=== PATIENT | male | born 1945 | race Caucasian/White ===

== ENCOUNTER 2019-09-11 18:50 | Observation (INO) | payer OTHER, MEDICARE ==
[2019-09-11] MEDS ORDERED: Lactated Ringers 1,000 ML IV STA (19:09)
[2019-09-11] MEDS ORDERED: Propofol 200 MG/20 ML SDV ONE (19:29)
[2019-09-11] MEDS ORDERED: fentaNYL 250 MCG/5 ML SDV ONE ×2 (19:29→20:48)
[2019-09-11] MEDS ORDERED: Midazolam 1 MG/ML 2 ML SDV ONE (19:29)
[2019-09-11] MEDS ORDERED: Ondansetron 4 MG/2 ML SDV ONE (19:32)
[2019-09-11] MEDS ORDERED: Rocuronium Bromide 50 MG/5 ML Syringe ONE (19:32)
[2019-09-11] MEDS ORDERED: Lidocaine 2% 5 ML SDV ONE (19:32)
[2019-09-11] MEDS ORDERED: Ketorolac 30 MG/ML SDV ONE (19:32)
[2019-09-11] MEDS ORDERED: Glycopyrrolate 0.2 MG/ML SDV ONE (19:32)
[2019-09-11] MEDS ORDERED: Bupivacaine 0.25%/EPINEPHrine 1:200,000 10 ML SDV ONE (19:42)
[2019-09-11] MEDS ORDERED: Lactated Ringers 1,000 ML IV SCH ×2 (19:45→21:30)
--- NOTE | 2019-09-11 19:47 | PCM.SN.2 ---
- Free Text/Narrative Note: pt seen, chart reviewed; acute appendicitis; to surgery for appendectomy, lap vs open; rb dw pt re bleeding/infection/damage to nearby organs/abscess/postop course; pt concurred and proceed; ivf/ivabx/consent; [id number]
[2019-09-11] MEDS ORDERED: fentaNYL 100 MCG/2 ML SDV IVPUSH PRN (19:52)
--- NOTE | 2019-09-11 19:52 | PCM.PREANE ---
Preanesthetic Assessment - Anesthesia/Transfusion/Family Hx Anesthesia History: Prior Anesthesia Without Reaction Family History of Anesthesia Reaction: No - Review of Systems Gastrointestinal: Abdominal Pain - Physical Assessment NPO Status Date: 09/11/19 NPO Status Time: 08:00 Vital Signs: Last Vital Signs Temp 35.8 C L 09/11/19 19:18 Pulse 67 09/11/19 19:18 Resp 18 09/11/19 19:18 BP 139/63 09/11/19 19:18 Pulse Ox 93 L 09/11/19 19:18 Height: 1.8 m Weight: 99.79 kg ASA Class: 2E - Allergies Allergies/Adverse Reactions: Allergies Allergy/AdvReac Type Severity Reaction Status Date / Time No Known Allergies Allergy Verified 09/11/19 18:52 - Acknowledgements Anesthesia Type Planned: General Anesthesia Pt an Appropriate Candidate for the Planned Anesthesia: Yes Alternatives and Risks of Anesthesia Discussed w Pt/Guardian: Yes Pt/Guardian Understands and Agrees with Anesthesia Plan: Yes PreAnesthesia Questionnaire Cardiovascular History: Reports: Hypertension Psychiatric History: Reports: Depression - Infectious Disease History Infectious Disease History: Reports: Chicken Pox - Past Surgical History Cardiovascular Surgical History: Reports: Other (See Below) GI Surgical History: Reports: Cholecystectomy - SUBSTANCE USE Smoking Status *Q: Former Smoker Tobacco Use Within Last Twelve Months: Cigarettes Recreational Drug Use History: No - HOME MEDS Home Medications: Home Meds Allopurinol [Zyloprim] 100 mg PO DAILY 09/11/19 [History] Aspirin [Aspirin EC] 81 mg PO DAILY 09/11/19 [History] Citalopram Hydrobromide [Celexa] 40 mg PO DAILY 09/11/19 [History] Doxazosin [Cardura] 4 mg PO DAILY 09/11/19 [History] Ezetimibe [Zetia] 10 mg PO BEDTIME 09/11/19 [History] Metoprolol Tartrate 50 mg PO BID 09/11/19 [History] [place]-3/DHA/Epa/Fish Oil [[place] 3 500 Softgel] 1 tab PO DAILY 09/11/19 [History] Pantoprazole Sodium [Protonix] 40 mg PO DAILY 09/11/19 [History] Ramipril 10 mg PO DAILY 09/11/19 [History] Simvastatin 40 mg PO BEDTIME 09/11/19 [History] Ubidecarenone [Coq10] 1 tab PO DAILY 09/11/19 [History] hydroCHLOROthiazide [Hydrochlorothiazide] 12.5 mg PO DAILY 09/11/19 [History] - CURRENT (IN HOUSE) MEDS Current Meds: Current Medications Lactated Ringer's (Ringers, Lactated) 1,000 mls @ 125 mls/hr IV STAT STA Stop: 09/12/19 03:08 Last Admin: 09/11/19 19:19 Dose: 125 mls/hr Documented by: Lactated Ringer's (Ringers, Lactated) 1,000 mls @ 125 mls/hr IV ASDIRECTED BRADLEY Discontinued Medications Bupivacaine HCl/Epinephrine Bitart (Marcaine 0.25%/Epinephrine 1:200,000) Con firm Administered Dose 20 ml .ROUTE .STK-MED ONE Stop: 09/11/19 19:43 Fentanyl (Sublimaze) Confirm Administered Dose 250 mcg .ROUTE .STK-MED ONE Stop: 09/11/19 19:30 Glycopyrrolate (Robinul) Confirm Administered Dose 0.2 mg .ROUTE .STK-MED ONE Stop: 09/11/19 19:33 Ketorolac Tromethamine (Toradol) Confirm Administered Dose 30 mg .ROUTE .STK-MED ONE Stop: 09/11/19 19:33 Lidocaine (Xylocaine-Mpf 2%) Confirm Administered Dose 5 ml .ROUTE .STK-MED ONE Stop: 09/11/19 19:33 Midazolam HCl (Versed 1 Mg/Ml) Confirm Administered Dose 2 mg .ROUTE .STK-MED ONE Stop: 09/11/19 19:30 Ondansetron HCl (Zofran) Confirm Administered Dose 4 mg .ROUTE .STK-MED ONE Stop: 09/11/19 19:33 Propofol (Diprivan 20 Ml) Confirm Administered Dose 200 mg .ROUTE .STK-MED ONE Stop: 09/11/19 19:30 Rocuronium Holliday (Rocuronium Holliday) Confirm Administered Dose 50 mg .ROUTE .STK-MED ONE Stop: 09/11/19 19:33
[2019-09-11] MEDS ORDERED: Sugammadex Sodium 200 MG/2 ML VIAL ONE (19:59)
[2019-09-11] MEDS ORDERED: Desflurane 240 ML Bottle ONE (19:59)
--- NOTE | 2019-09-11 21:29 | PCM.OPNOTE ---
- General Post-Op/Procedure Note Date of Surgery/Procedure: 09/11/19 Operative Procedure(s): lap appy Findings: appendix was dilated and hardened, perforated during manipulation; [id number] Pre Op Diagnosis: acute appendicitis Post-Op Diagnosis: perforated appendicitis Anesthesia Technique: General ET Tube Primary Surgeon: Tim Hamilton Pathology: sent Complications: None Condition: Stable Free Text/Narrative:: Intake & Output 09/11/19 09/11/19 09/11/19 06:59 14:59 22:59 Output Total 100 Balance -100
[2019-09-11] MEDS ORDERED: Ondansetron 4 MG/2 ML SDV IVPUSH PRN (21:30)
[2019-09-11] MEDS ORDERED: Morphine 4 MG/ML Syringe IVPUSH PRN (21:31)
[2019-09-11] MEDS: Acetaminophen 1,000 MG in Premix Bag 1 BAG IV PRN (21:44)
--- NOTE | 2019-09-11 21:54 | PCM.POSTAN ---
POST ANESTHESIA ASSESSMENT - MENTAL STATUS Mental Status: Alert - VITAL SIGNS Vital Signs: Last Vital Signs Temp 35.8 C L 09/11/19 19:18 Pulse 73 09/11/19 20:11 Resp 18 09/11/19 20:11 BP 131/65 09/11/19 20:11 Pulse Ox 92 L 09/11/19 20:11 - RESPIRATORY Respiratory Status: Respiratory Rate WNL - CARDIOVASCULAR CV Status: Pulse Rate WNL - GASTROINTESTINAL GI Status: No Symptoms - POST OP HYDRATION Hydration Status: Adequate & Stable
[2019-09-12] MEDS: Acetaminophen/oxyCODONE 325-5 MG Tab PO PRN ×2 (01:15→09:07)
[2019-09-12] MEDS ORDERED: Morphine 4 MG/ML Syringe IVPUSH ONE (05:13)
[2019-09-12] MEDS ORDERED: Lactated Ringers 1,000 ML IV ONE (06:26)
--- NOTE | 2019-09-12 08:57 | OR ---
SURGEON: Tim Hamiltno MD DATE OF PROCEDURE: 09/11/2019 PREOPERATIVE DIAGNOSIS: Acute appendicitis. POSTOPERATIVE DIAGNOSIS: Perforated appendicitis. PROCEDURE PERFORMED: Laparoscopic appendectomy with ZARI drain placement. PRIMARY SURGEON: Tim Hamilton MD. COMPLICATIONS: None. FINDINGS: The appendix was dilated like a balloon and full of exudate consistent with appendicitis suppurativa, and during manipulation, it ruptured. DESCRIPTION OF PROCEDURE: The patient was taken to the operating room and placed in the supine position. Following induction of general endotracheal anesthesia, the patient's abdomen was prepped and draped in the sterile fashion. A time-out has been called. The patient was identified. The procedure was identified. The antibiotics were identified. The procedure then proceeded. The abdomen was prepped and draped in a standard fashion. After assessment of appropriate landmarks, a 12 millimeter trocar was inserted supraumbilically using Optiview and pneumoperitoneum was then achieved. This was followed with placement of 5 millimeter port in the right upper quadrant and another 5 millimeter port infraumbilically. The camera was inserted supraumbilical site and two laparoscopic Mikayla retractors were then inserted through the other two sites. Following the cecum, the appendix was located. The appendix was then lifted up, and using a GI stapler the appendix was amputated at the base. And using the GI stapler, the mesoappendix was then amputated. The appendix was retrieved by an endoscopic bag and sent for pathologist. After the appendix was removed, over 3 L of warm irrigation copiously irrigated the abdomen before withdrawing the trocar, and a flat ZARI drain was also placed afterward and anchored to the skin by 0 silk. This was then followed by re-insertion of the camera to examine the staple line, and hemostasis. The trocars were then removed. The umbilical site was closed with 2-0 Vicryl deep stitch and skin rony for skin approximation, so does the other sites; The patient was then awakened, extubated, and transferred to the recovery room in hemodynamically stable condition. Prior to closing, sponge count and instrument count was correct. Dr. Hamilton was present throughout the whole procedure. As always, thank you for the kind referral. RENUKA / EVERT /[id number] NICOLE
--- NOTE | 2019-09-12 09:35 | PCM48HPAN ---
Post Anesthesia Note - EVALUATION WITHIN 48HRS OF ANESTHETIC Vital Signs in Normal Range: Yes Patient Participated in Evaluation: Yes Respiratory Function Stable: Yes Airway Patent: Yes Cardiovascular Function Stable: Yes Hydration Status Stable: Yes Pain Control Satisfactory: Yes Nausea and Vomiting Control Satisfactory: Yes Mental Status Recovered: Yes Vital Signs: Last Vital Signs Temp 36.0 C L 09/12/19 04:30 Pulse 79 09/12/19 04:30 Resp 15 09/12/19 04:30 BP 124/66 09/12/19 04:30 Pulse Ox 95 09/12/19 04:30
[2019-09-12] MEDS: Acetaminophen 1,000 MG in Premix Bag 1 BAG IV PRN ×2 (10:27→13:04)
[2019-09-12] MEDS: Ketorolac 15 MG/ML SDV IVPUSH PRN ×2 (10:31→21:10)
--- NOTE | 2019-09-12 10:49 | HP ---
DATE OF : 1945 PRIMARY CARE PHYSICIAN: JUAN J SILVA, GOLF COURSE ASSISTANT He is a transfer from [facility]. TRANSFER CONSULT QUESTION: Acute appendicitis. HISTORY OF PRESENT ILLNESS: The patient is a 74 years ago, obese, gentleman, complained of a 24- hour history of acute onset of right upper quadrant pain and acute onset of periumbilical pain, subsequently migrated to the right lower quadrant. CAT scan shows inflammatory change around the appendix. Radiologist reported acute appendicitis. The patient was then transferred to our facility for further management. The patient remarked that the pain has been going on for 24 hours, and on the pain scale of 8/10. Denied prior episode. Denied nausea, vomiting. Last meal was at 1200 hours. PAST MEDICAL HISTORY: Significant for no diabetes, hypertension, or CVA. The patient has had CT 5 years ago, status post CABG. FAMILY HISTORY: Denied family history of malignant hyperthermia. SOCIAL HISTORY: Denied tobacco or alcohol abuse. ALLERGIES TO MEDICATION: Please refer to nursing for details. PHYSICAL EXAMINATION: GENERAL: A very pleasant gentleman in no acute distress. HEENT: Normocephalic and atraumatic. Sclerae are anicteric. LUNGS: Clear to auscultation. HEART: Regular rate and rhythm. ABDOMEN: Obese. Exquisite tenderness on the McBurney's point. No Rovsing's sign. No rebound tenderness. Obvious surgical scar on the sternum and obvious laparoscopic surgery scar. No hernia appreciated, and no pulsating tender midline abdominal structure. LABORATORY DATA: White count of 12. BUN is 28, creatinine is 1.2. Total bilirubin is 0.4. AST and ALT are 19 and 21, alkaline phosphatase is 76. Lipase is 34. UA, no signs or symptoms of urinary tract infection. CAT scan, acute appendicitis, no evidence to suggest perforation. IMPRESSION: History and physical and imaging study consistent with acute appendicitis. The patient will be taken to the operating room for timely surgery intervention. We will offer laparoscopic versus open appendectomy. Risks and benefits discussed with the patient including bleeding, infection, and damage to nearby organ, as well as possible abdominal abscess, and postop course, and the patient concurred to proceed with surgery. We will start with IV fluid, IV antibiotic, signed consent. As always, thank you for the kind referral. RENUKA / EVERT /[id number]
--- NOTE | 2019-09-12 11:14 | PCM.SURGPN ---
- General Info Date of Service: 09/12/19 Pain Score: 6 - Patient Data Vitals - Most Recent: Last Vital Signs Temp 97.9 F 09/12/19 08:00 Pulse 80 09/12/19 08:00 Resp 16 09/12/19 08:00 BP 101/52 L 09/12/19 08:00 Pulse Ox 94 L 09/12/19 10:00 Weight - Most Recent: 220 lb I&O - Last 24 Hours: Intake & Output 09/11/19 09/12/19 09/12/19 22:59 06:59 14:59 Intake Total 1750 500 Output Total 310 300 Balance 1440 200 Lab Results Last 24 Hrs: Laboratory Results - last 24 hr 09/11/19 09/12/19 Range/Units 19:29 10:46 WBC 12.16 H (4.0-11.0) K/uL RBC 4.06 L (4.50-5.90) M/uL Hgb 11.8 L (13.0-17.0) g/dL Hct 37.3 L (38.0-50.0) % MCV 91.9 (80.0-98.0) fL MCH 29.1 (27.0-32.0) pg MCHC 31.6 (31.0-37.0) g/dL RDW Std Deviation 52.6 (28.0-62.0) fl RDW Coeff of Manpreet 16 H (11.0-15.0) % Plt Count 169 (150-400) K/uL MPV 10.40 (7.40-12.00) fL Neut % (Auto) 76.8 (48.0-80.0) % Lymph % (Auto) 15.5 L (16.0-40.0) % [place] % (Auto) 7.5 (0.0-15.0) % Eos % (Auto) 0.1 (0.0-7.0) % Baso % (Auto) 0.1 (0.0-1.5) % Neut # (Auto) 9.3 H (1.4-5.7) K/uL Lymph # (Auto) 1.9 (0.6-2.4) K/uL [place] # (Auto) 0.9 H (0.0-0.8) K/uL Eos # (Auto) 0.0 (0.0-0.7) K/uL Baso # (Auto) 0.0 (0.0-0.1) K/uL Nucleated RBC % 0.0 /100WBC Nucleated RBCs # 0 K/uL SARS-CoV-2 RNA (RT-PCR) NEGATIVE (NEGATIVE) Med Orders - Current: Current Medications Acetaminophen 1,000 mg/ Premix 100 mls @ 400 mls/hr IV Q6H PRN PRN Reason: Pain Last Infusion: 09/11/19 21:59 Dose: Infused Documented by: Cefoxitin Sodium (Mefoxin In Dextrose,Iso-Osm 1 Gm/50 Ml) 50 mls @ 100 mls/hr IV Q8H BRADLEY Last Admin: 09/12/19 05:34 Dose: 100 mls/hr Documented by: Lactated Ringer's (Ringers, Lactated) 1,000 mls @ 100 mls/hr IV ASDIRECTED [facility] Ketorolac Tromethamine (Toradol) 15 mg IVPUSH Q6H PRN PRN Reason: PAIN Last Admin: 09/12/19 10:31 Dose: 15 mg Documented by: Morphine Sulfate (Morphine) 4 mg IVPUSH Q6H PRN PRN Reason: Breakthrough Pain Ondansetron HCl (Zofran) 4 mg IVPUSH Q8H PRN PRN Reason: Nausea/Vomiting Oxycodone/Acetaminophen (Percocet 325-10 Mg) 1 tab PO Q6H PRN PRN Reason: Pain/Fever Discontinued Medications Bupivacaine HCl/Epinephrine Bitart (Marcaine 0.25%/Epinephrine 1:200,000) Confirm Administered Dose 20 ml .ROUTE .STK-MED ONE Stop: 09/11/19 19:43 Desflurane (Suprane) Confirm Administered Dose 240 ml .ROUTE .STK-MED ONE Stop: 09/11/19 20:00 Fentanyl (Sublimaze) Confirm Administered Dose 250 mcg .ROUTE .STK-MED ONE Stop: 09/11/19 19:30 Fentanyl (Sublimaze) 50 mcg IVPUSH Q5M PRN PRN Reason: Pain Fentanyl (Sublimaze) Confirm Administered Dose 250 mcg .ROUTE .STK-MED ONE Stop: 09/11/19 20:49 Glycopyrrolate (Robinul) Confirm Administered Dose 0.2 mg .ROUTE .STK-MED ONE Stop: 09/11/19 19:33 Lactated Ringer's (Ringers, Lactated) 1,000 mls @ 125 mls/hr IV STAT STA Stop: 09/12/19 03:08 Last Admin: 09/11/19 19:19 Dose: 125 mls/hr Documented by: Lactated Ringer's (Ringers, Lactated) 1,000 mls @ 125 mls/hr IV ASDIRECTED BRADLEY Last Admin: 09/11/19 23:07 Dose: 125 mls/hr Documented by: Lactated Ringer's (Ringers, Lactated) 1,000 mls @ 125 mls/hr IV ASDIRECTED BRADLEY Cefoxitin Sodium 1 gm/ Sodium (Chloride) 50 mls @ 100 mls/hr IV Q8HR BRADLEY Acetaminophen (Ofirmev) Confirm Administered Dose 100 mls @ as directed .ROUTE .STK-MED ONE Stop: 09/11/19 21:43 Lactated Ringer's (Ringers, Lactated) 1,000 mls @ 999 mls/hr IV ONETIME ONE Stop: 09/12/19 07:26 Last Admin: 09/12/19 06:37 Dose: 999 mls/hr Documented by: Ketorolac Tromethamine (Toradol) Confirm Administered Dose 30 mg .ROUTE .STK-MED ONE Stop: 09/11/19 19:33 Lidocaine (Xylocaine-Mpf 2%) Confirm Administered Dose 5 ml .ROUTE .STK-MED ONE Stop: 09/11/19 19:33 Midazolam HCl (Versed 1 Mg/Ml) Confirm Administered Dose 2 mg .ROUTE .STK-MED ONE Stop: 09/11/19 19:30 Morphine Sulfate (Morphine) 3 mg IVPUSH ONETIME ONE Stop: 09/12/19 05:14 Last Admin: 09/12/19 05:27 Dose: 3 mg Documented by: Ondansetron HCl (Zofran) Confirm Administered Dose 4 mg .ROUTE .STK-MED ONE Stop: 09/11/19 19:33 Oxycodone/Acetaminophen (Percocet 325-5 Mg) 1 tab PO Q6H PRN PRN Reason: Pain Last Admin: 09/12/19 09:07 Dose: 1 tab Documented by: Propofol (Diprivan 20 Ml) Confirm Administered Dose 200 mg .ROUTE .STK-MED ONE Stop: 09/11/19 19:30 Rocuronium [place] (Rocuronium [place]) Confirm Administered Dose 50 mg .ROUTE .STK-MED ONE Stop: 09/11/19 19:33 Sugammadex Sodium ([place]ridion) Confirm Administered Dose 200 mg .ROUTE .STK-MED ONE Stop: 09/11/19 20:00 - Exam GI/Abdominal Exam: No Distention (wound cdi; brando cloudy; hurt in abd; denied chest pain) Sepsis Event Note - Evaluation Sepsis Screening Result: No Definite Risk - Focused Exam Vital Signs: Vital Signs Temp Pulse Resp BP Pulse Ox 09/12/19 10:00 94 L 09/12/19 09:00 92 L 09/12/19 08:15 88 L 09/12/19 08:00 97.9 F 80 16 101/52 L 77 L 09/12/19 04:30 96.8 F L 79 15 124/66 95 09/12/19 02:30 97.9 F 84 18 118/60 95 09/12/19 01:30 97.7 F 82 17 115/62 96 09/12/19 00:30 97.7 F 82 18 135/86 96 09/12/19 00:00 98.2 F 75 18 125/65 95 09/11/19 23:30 98.2 F 86 18 118/68 95 09/11/19 23:15 98.2 F 85 16 132/85 99 Date Exam was Performed: 09/12/19 Time Exam was Performed: 11:12 - Problem List Review Problem List Initiated/Reviewed/Updated: Yes - My Orders Last 24 Hours: Active Orders 24 hr Category Date Time Status Admission Status [Patient Status] [ADT] Routine ADT 09/11/19 21:29 Active Communication Order [RC] ROUTINE Care 09/11/19 21:33 Active Full Liquid Diet [DIET] Diet 09/12/19 Breakfast Active COMPREHENSIVE METABOLIC PN,CMP [CHEM] Routine Lab 09/12/19 10:13 Ordered Acetaminophen [Ofirmev] 1,000 mg Med 09/11/19 19:52 Active Premix Bag 1 bag IV Q6H Acetaminophen/oxyCODONE [Percocet 325-10 MG] Med 09/12/19 10:21 Active 1 tab PO Q6H PRN Ketorolac [Toradol] Med 09/12/19 10:25 Active 15 mg IVPUSH Q6H PRN Lactated Ringers [Ringers, Lactated] 1,000 ml Med 09/12/19 10:30 Active IV ASDIRECTED Morphine Med 09/11/19 21:31 Active 4 mg IVPUSH Q6H PRN Ondansetron [Zofran] Med 09/11/19 21:30 Active 4 mg IVPUSH Q8H PRN cefOXitin [Mefoxin in Dextrose,Iso-Osm 1 GM/50 ML] 50 Med 09/11/19 22:00 Active ml IV Q8H Medication Orders Acetaminophen 1,000 mg/ Premix 100 mls @ 400 mls/hr IV Q6H PRN PRN Reason: Pain Last Infusion: 09/11/19 21:59 Dose: 400 mls/hr Documented by: Admin: 09/11/19 21:44 Dose: 400 mls/hr Documented by: AYAH Cefoxitin Sodium (Mefoxin In Dextrose,Iso-Osm 1 Gm/50 Ml) 50 mls @ 100 mls/hr IV Q8H BRADLEY Last Admin: 09/12/19 05:34 Dose: 100 mls/hr Documented by: Infusion: 09/11/19 23:38 Dose: 100 mls/hr Documented by: Admin: 09/11/19 23:08 Dose: 100 mls/hr Documented by: RACHELLE Lactated Ringer's (Ringers, Lactated) 1,000 mls @ 100 mls/hr IV ASDIRECTED BRADLEY Ketorolac Tromethamine (Toradol) 15 mg IVPUSH Q6H PRN PRN Reason: PAIN Last Admin: 09/12/19 10:31 Dose: 15 mg Documented by: YONIS Morphine Sulfate (Morphine) 4 mg IVPUSH Q6H PRN PRN Reason: Breakthrough Pain Ondansetron HCl (Zofran) 4 mg IVPUSH Q8H PRN PRN Reason: Nausea/Vomiting Oxycodone/Acetaminophen (Percocet 325-10 Mg) 1 tab PO Q6H PRN PRN Reason: Pain/Fever - Assessment Assessment (Free Text/Narrative):: pod#1 lap appy, perforated; increase abd pain, denied chest pain; sent blood work; change to observation adm status; continue ivf/iv abx - Plan Plan (Free Text/Narrative):: pod#1 lap appy, perforated; increase abd pain, denied chest pain; sent blood work; change to observation adm status; continue ivf/iv abx
[2019-09-12 11:21] LABS: CARBON DIOXIDE,CO2 21.8 mmol/L (21.0-32.0); POTASSIUM,K 4.4 mmol/L (3.5-5.1)
[2019-09-12] MEDS: Acetaminophen/oxyCODONE 325-10 MG Tab PO PRN ×2 (16:50→22:46)
[2019-09-12] MEDS: Pantoprazole 40 MG Tab.CR PO SCH (16:51)
[2019-09-12] MEDS: Lactated Ringers 1,000 ML IV SCH (22:42)
[2019-09-13] MEDS: Ketorolac 15 MG/ML SDV IVPUSH PRN ×2 (03:03→11:43)
[2019-09-13] MEDS: Acetaminophen/oxyCODONE 325-10 MG Tab PO PRN ×3 (04:43→22:48)
[2019-09-13] MEDS ORDERED: Lactated Ringers 500 ML IV ONE (05:10)
[2019-09-13] MEDS: Pantoprazole 40 MG Tab.CR PO SCH (08:51)
[2019-09-13] MEDS: Lactated Ringers 1,000 ML IV SCH ×2 (10:16→19:24)
[2019-09-13 12:37] LABS: CARBON DIOXIDE,CO2 24.7 mmol/L (21.0-32.0); POTASSIUM,K 4.3 mmol/L (3.5-5.1)
[2019-09-14] MEDS: Lactated Ringers 1,000 ML IV SCH (04:02)
--- NOTE | 2019-09-14 07:56 | PCM.DCSUM1 ---
Discharge Summary - Hospital Course Free Text/Narrative:: refer to admitting h/p for details; in summary, pls transfer from [facility] for appendicitis; Diagnosis: Stroke: No - Discharge Data Discharge Date: 09/14/19 Discharge Disposition: Home, Self-Care 01 Condition: Stable - Referral to Home Health Date of Face to Face Encounter: 09/14/19 Primary Care Physician: Grisel Santacruz [employer] - Patient Summary/Data Operative Procedure(s) Performed: lap appy Hospital Course: pt taken to surgery s/p lap appy w drain placement; appendix was v dilated, and ruptured during surgery; postop pt was put on iv abx; and diet started the next day; pt is not v mobile right after surg; but started OOB to chair yesterday; and amb w asst; doing well; home; upon discharge, deya po diet, pt has script for pain meds; learned [facility]ando maintanence and fu appt coming thursday to [facility] - Patient Instructions Diet: Regular Diet as Tolerated Activity: No Lifting Over 10 Pounds, No Strenuous Activities Driving: Do Not Drive Showering/Bathing: May Shower Wound/Incision Care: Keep Operative Site/Wound Site Clean and Dry Notify Provider of: Fever, Drainage, Nausea and/or Vomiting - Discharge Plan Home Medications: Home Meds Allopurinol [Zyloprim] 100 mg PO DAILY 09/11/19 [History] Aspirin [Aspirin EC] 81 mg PO DAILY 09/11/19 [History] Citalopram Hydrobromide [Celexa] 40 mg PO DAILY 09/11/19 [History] Doxazosin [Cardura] 4 mg PO DAILY 09/11/19 [History] Ezetimibe [Zetia] 10 mg PO BEDTIME 09/11/19 [History] Metoprolol Tartrate 50 mg PO BID 09/11/19 [History] Meridian-3/DHA/Epa/Fish Oil [Meridian 3 500 Softgel] 1 tab PO DAILY 09/11/19 [History] Pantoprazole Sodium [Protonix] 40 mg PO DAILY 09/11/19 [History] Ramipril 10 mg PO DAILY 09/11/19 [History] Simvastatin 40 mg PO BEDTIME 09/11/19 [History] Ubidecarenone [Coq10] 1 tab PO DAILY 09/11/19 [History] hydroCHLOROthiazide [Hydrochlorothiazide] 12.5 mg PO DAILY 09/11/19 [History] Patient Handouts: Laparoscopic Appendectomy, Adult, Care After, [id number], Surgical Drain Home Care Referrals: Tim Hamilton MD [Emergency Provider] - 09/20/19 9:15 am (Arrive 15 minutes early with a photo ID, insurance card, and a mask if you have one. ) - Discharge Summary/Plan Comment DC Time >30 min.: Yes - Patient Data Vitals - Most Recent: Last Vital Signs Temp 99.6 F 09/14/19 07:35 Pulse 85 09/14/19 07:35 Resp 14 09/14/19 07:35 BP 170/78 H 09/14/19 07:35 Pulse Ox 92 L 09/14/19 07:35 Weight - Most Recent: 231 lb 8 oz I&O - Last 24 hours: Intake & Output 09/13/19 09/14/19 09/14/19 22:59 06:59 14:59 Intake Total 570 3151 Output Total 645 880 Balance -75 2271 Lab Results - Last 24 hrs: Laboratory Results - last 24 hr 09/13/19 09/13/19 Range/Units 12:05 12:05 WBC 12.94 H (4.0-11.0) K/uL RBC 3.87 L (4.50-5.90) M/uL Hgb 11.4 L (13.0-17.0) g/dL Hct 35.7 L (38.0-50.0) % MCV 92.2 (80.0-98.0) fL MCH 29.5 (27.0-32.0) pg MCHC 31.9 (31.0-37.0) g/dL RDW Std Deviation 53.5 (28.0-62.0) fl RDW Coeff of Manpreet 16 H (11.0-15.0) % Plt Count 152 (150-400) K/uL MPV 9.80 (7.40-12.00) fL Neut % (Auto) 83.8 H (48.0-80.0) % Lymph % (Auto) 9.2 L (16.0-40.0) % Reynolds % (Auto) 6.5 (0.0-15.0) % Eos % (Auto) 0.4 (0.0-7.0) % Baso % (Auto) 0.1 (0.0-1.5) % Neut # (Auto) 10.9 H (1.4-5.7) K/uL Lymph # (Auto) 1.2 (0.6-2.4) K/uL Reynolds # (Auto) 0.8 (0.0-0.8) K/uL Eos # (Auto) 0.1 (0.0-0.7) K/uL Baso # (Auto) 0.0 (0.0-0.1) K/uL Nucleated RBC % 0.0 /100WBC Nucleated RBCs # 0 K/uL Sodium 137 (136-148) mmol/L Potassium 4.3 (3.5-5.1) mmol/L Chloride 103 (98-107) mmol/L Carbon Dioxide 24.7 (21.0-32.0) mmol/L BUN 25 H (7.0-18.0) mg/dL Creatinine 1.5 H (0.8-1.3) mg/dL Est Cr Clr Drug Dosing 47.22 mL/min Estimated GFR (MDRD) 46.0 ml/min Glucose 116 H (74-106) mg/dL Calcium 7.9 L (8.5-10.1) mg/dL Total Bilirubin 0.6 (0.2-1.0) mg/dL AST 28 (15-37) IU/L ALT 25 (14-63) IU/L Alkaline Phosphatase 63 (46-116) U/L Total Protein 6.5 (6.4-8.2) g/dL Albumin 2.9 L (3.4-5.0) g/dL Globulin 3.6 (2.6-4.0) g/dL Albumin/Globulin Ratio 0.8 L (0.9-1.6) Med Orders - Current: Current Medications Acetaminophen 1,000 mg/ Premix 100 mls @ 400 mls/hr IV Q6H PRN PRN Reason: Pain Last Admin: 09/12/19 13:04 Dose: 400 mls/hr Documented by: Cefoxitin Sodium (Mefoxin In Dextrose,Iso-Osm 1 Gm/50 Ml) 50 mls @ 100 mls/hr IV Q8H [facility] Last Admin: 09/14/19 05:43 Dose: 100 mls/hr Documented by: Lactated Ringer's (Ringers, Lactated) 1,000 mls @ 100 mls/hr IV ASDIRECTED [facility] Last Admin: 09/14/19 04:02 Dose: 100 mls/hr Documented by: Ketorolac Tromethamine (Toradol) 15 mg IVPUSH Q6H PRN PRN Reason: PAIN Last Admin: 09/13/19 11:43 Dose: 15 mg Documented by: Morphine Sulfate (Morphine) 4 mg IVPUSH Q6H PRN PRN Reason: Breakthrough Pain Ondansetron HCl (Zofran) 4 mg IVPUSH Q8H PRN PRN Reason: Nausea/Vomiting Oxycodone/Acetaminophen (Percocet 325-10 Mg) 1 tab PO Q6H PRN PRN Reason: Pain/Fever Last Admin: 09/13/19 22:48 Dose: 1 tab Documented by: Pantoprazole Sodium (Protonix) 20 mg PO DAILY [facility] Last Admin: 09/13/19 08:51 Dose: 20 mg Documented by: Discontinued Medications Bupivacaine HCl/Epinephrine Bitart (Marcaine 0.25%/Epinephrine 1:200,000) Confirm Administered Dose 20 ml .ROUTE .STK-MED ONE Stop: 09/11/19 19:43 Desflurane (Suprane) Confirm Administered Dose 240 ml .ROUTE .STK-MED ONE Stop: 09/11/19 20:00 Fentanyl (Sublimaze) Confirm Administered Dose 250 mcg .ROUTE .STK-MED ONE Stop: 09/11/19 19:30 Fentanyl (Sublimaze) 50 mcg IVPUSH Q5M PRN PRN Reason: Pain Fentanyl (Sublimaze) Confirm Administered Dose 250 mcg .ROUTE .STK-MED ONE Stop: 09/11/19 20:49 Glycopyrrolate (Robinul) Confirm Administered Dose 0.2 mg .ROUTE .STK-MED ONE Stop: 09/11/19 19:33 Lactated Ringer's (Ringers, Lactated) 1,000 mls @ 125 mls/hr IV STAT STA Stop: 09/12/19 03:08 Last Admin: 09/11/19 19:19 Dose: 125 mls/hr Documented by: Lactated Ringer's (Ringers, Lactated) 1,000 mls @ 125 mls/hr IV ASDIRECTED [facility] Last Admin: 09/11/19 23:07 Dose: 125 mls/hr Documented by: Lactated Ringer's (Ringers, Lactated) 1,000 mls @ 125 mls/hr IV ASDIRECTED [facility] Cefoxitin Sodium 1 gm/ Sodium (Chloride) 50 mls @ 100 mls/hr IV Q8HR [facility] Acetaminophen (Ofirmev) Confirm Administered Dose 100 mls @ as directed .ROUTE .STK-MED ONE Stop: 09/11/19 21:43 Lactated Ringer's (Ringers, Lactated) 1,000 mls @ 999 mls/hr IV ONETIME ONE Stop: 09/12/19 07:26 Last Admin: 09/12/19 06:37 Dose: 999 mls/hr Documented by: Lactated Ringer's (Ringers, Lactated) 500 mls @ 999 mls/hr IV ONETIME ONE Stop: 09/13/19 05:40 Last Admin: 09/13/19 05:11 Dose: 999 mls/hr Documented by: Ketorolac Tromethamine (Toradol) Confirm Administered Dose 30 mg .ROUTE .STK-MED ONE Stop: 09/11/19 19:33 Lidocaine (Xylocaine-Mpf 2%) Confirm Administered Dose 5 ml .ROUTE .STK-MED ONE Stop: 09/11/19 19:33 Midazolam HCl (Versed 1 Mg/Ml) Confirm Administered Dose 2 mg .ROUTE .STK-MED ONE Stop: 09/11/19 19:30 Morphine Sulfate (Morphine) 3 mg IVPUSH ONETIME ONE Stop: 09/12/19 05:14 Last Admin: 09/12/19 05:27 Dose: 3 mg Documented by: Ondansetron HCl (Zofran) Confirm Administered Dose 4 mg .ROUTE .STK-MED ONE Stop: 09/11/19 19:33 Oxycodone/Acetaminophen (Percocet 325-5 Mg) 1 tab PO Q6H PRN PRN Reason: Pain Last Admin: 09/12/19 09:07 Dose: 1 tab Documented by: Propofol (Diprivan 20 Ml) Confirm Administered Dose 200 mg .ROUTE .STK-MED ONE Stop: 09/11/19 19:30 Rocuronium [place] (Rocuronium [place]) Confirm Administered Dose 50 mg .ROUTE .STK-MED ONE Stop: 09/11/19 19:33 Sugammadex Sodium (Bridion) Confirm Administered Dose 200 mg .ROUTE .STK-MED ONE Stop: 09/11/19 20:00
[2019-09-14] MEDS: Pantoprazole 40 MG Tab.CR PO SCH (08:29)
[2019-09-14] MEDS: Acetaminophen/oxyCODONE 325-10 MG Tab PO PRN (08:30)
== END 2019-09-14 11:49 | disposition home or self-care (01) ==
LOC: MW.ED 18:50 → MW.SDS 19:26 → MW.MS 23:04 → MW.SDS 09-12 13:50
PROVIDERS: ADMIT Surgery; ATTEND Surgery
DX: K35.33 Acute appendicitis with perforation, localized peritonitis, and gangrene, with abscess (principal); Z11.59 Encounter for screening for other viral diseases; I10 Essential (primary) hypertension; Z79.82 Long term (current) use of aspirin; Z79.899 Other long term (current) drug therapy; Z90.49 Acquired absence of other specified parts of digestive tract
CPT/HCPCS: 36415; 80053; 85025; 88304; 88305; 96365; 96375; 96376; A9270-GY; C1776; G0378; J0131; J0694; J1885; J2001; J2250; J2270; J2405; J2704; J3010; J3490; J7120; U0002